=== PATIENT | male | born 1995 | race Hispanic/Latino ===

== ENCOUNTER 2017-09-05 06:05 | Emergency (ER) | payer BC, OTHER ==
[2017-09-05] MEDS ORDERED: IBUPROFEN 400 MG TAB ONE (07:05)
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
== END 2017-09-05 07:22 | disposition home or self-care (01) ==
LOC: ER 06:05
DX: M54.5 Low back pain (principal); V47.5XXA Car driver injured in collision with fixed or stationary object in traffic accident, initial encounter
CPT/HCPCS: 71045; 72100; 99284